=== PATIENT | male | born 1945 | race Caucasian/White ===

== ENCOUNTER 2017-04-30 09:58 | Emergency (ER) | payer BC, OTHER ==
[2017-04-30 10:08] VITALS: BP 124/68; BMI 27.1
--- NOTE | 2017-04-30 10:16 | DR.GENAD ---
HPI - PCP Primary Care Physician: SUSANNE - HPI Comment HPI Comment: HISTORY BELOW. - Complaint/Symptoms Chief Complaint Doctors Comments: FEVER, GENERALIZE WEAKNESS AND CONGESTION AND HEADACHE. S/P KIDNEY TRANSPLANT 03/22/2017. PATIENT IS WEAK AND DRAIN OF ENERGY. SPIKE TEMP LAST NIGHT AND HAD LOW GRADE FEVER THIS AM. Chief Complaint:: PT. C/O GENERALIZED WEAKNESS, CONGESTION, FEVER, CHILLS. PT. HAD A KIDNEY TRANSPLANT ON 03/22/17 IN [place], [place]. PT. WAS SEEN FOR A FOLLOW UP THIS PAST TUESDAY AND FELT FINE. PT. STARTED FEELING BAD ON TUESDAY. FEVER GOT UP TO 101.9 LAST NIGHT. - Nurses notes reviewed Nurses Notes Review: Yes - Source History Provided: Patient, Family Member - Mode of Arrival Mode of Arrival: Ambulatory - Timing Onset of Chief Complaint: 04/28/17 Came on: Gradually - Duration Duration: Constant Duration: Days - Severity Severity: Moderate PMH - PMH Past Medical History: Yes Past Medical History: Anxiety, Arthritis, Hypertension, Renal Disease Past Surgical History: Yes Surgical History: Organ Transplant, Ortho Surgery, Other Past Surgical History Comment: KIDNEY TRANSPLANT - Family History History of Family Medical Conditions: Yes Family Medical History: Diabetes Mellitus, Cancer, [place] - Social History Does patient currently use any type of tobacco product: No Have you used tobacco products in the last 12 months: No Type of Tobacco Use: None Does any household member use tobacco: No Alcohol Use: None Do you use any recreational Drugs:: No Lives With: Spouse Lives Where: Home - infectious screening In the last 2 months have you had wt loss of >10#?: NO Have you had fever, night sweats or hemotysis?: No Have you traveled outside the country in the last 6 months?: No Isolation: Standard ROS - Review of Systems Constitutional: Chills, Fever, Weakness, Fatigue, Loss of Appetite Eyes: negative: Eye Pain, Discharge, Diplopia ENTM: Nose Discharge, Nose Congestion. negative: Ear Pain, Throat Pain Respiratoy: Non-Productive Cough. negative: Productive Cough, Short of Breath, Wheezing, Hemoptysis Cardiovascular: No Symptoms Reported Gastrointestinal/Abdominal: Other (RT LOWER ABSOMINAL WALL ERYTHEMA.) Genitourinary: No Symptoms Reported Neurological: Headache Musculoskeletal: No Symptoms Reported Integumentary: Change in Color, Other (RIGHT LOWER ABDOMINAL WALL REDNESS AND MIOLD TERNDERNESS. NO DRAINAGE.) Hematologic/Lymphatic: No Symptoms Reported Endocrine: No Symptoms Reported All Other Systems: Reviewed and Negative PE - Vital Signs Vitals: Temperature 98.0 F Pulse Rate 74 Respiratory Rate 18 Blood Pressure 124/68 O2 Sat by Pulse Oximetry 96 - General Limitations: No Limitations General Appearance: Alert - Head Head Exam: Normal Inspection - Eyes Eye exam: Normal Appearance - ENT ENT Exam: Normal External Ear Exam External Ear Exam: Normal External Inspection TM/Canal Exam: Bilateral Normal Nose Exam: Normal Nose Exam Mouth Exam: Normal Inspection Throat Exam: Normal Inspection - Neck Neck Exam: Trachea Midline - Chest Chest Inspection: Symmetric Chest Wall Rise - Respiratory Respiratory Exam: Normal Lung Sounds Bilat Respiratory Exam: Bilateral Clear to Auscultation - Cardiovascular Cardiovascular Exam: Regular Rate, Normal Rhythm, Normal Heart Sounds - Abdominal Exam Abdominal Exam: Normal Bowel Sounds, Soft. negative: Tenderness - Extremities Extremities Exam: Normal Inspection - Back Back Exam: Normal Inspection - Neurologic Neurological Exam: Alert, Oriented X3, CN II-XII Intact, Normal Gait, Reflexes Normal. negative: Motor Sensory Deficit - Psychiatric Psychiatric Exam: Normal Affect, Normal Mood - Skin Skin Exam: Erythema MDM - Additional Information Additional Information Obtained From: Family - Differential Diagnosis Differential Diagnosis: FEVER, UTI, SINUSITIS, HEADACHE, WEAKNESS/GENERALIZE Course - Treatment Treatment: SEE ORDERS. - Consultation Consultation Comments: DISCUSS PATIENT WITH JIAN READ[facility] [place] SHE WILL TRANSFER PATIENT TO THEIR HOSPITAL FOR FURTHER MANAGEMENT. URINE CHECK TUESDAY WHEN PATIENT WAS THERE FOR FOLLOW UP IS POSITIVE FOR GROWTH. WANT 1GM VANCOMYCIN AND ZOSYN GIVEN. - Education/Counseling Education/Counseling: Patient, Family Educated On: Treatment, Diagnosis ROR - Labs Reviewed Laboratory Results Reviewed?: Yes Result Diagrams: 04/30/17 10:30 04/30/17 10:30 Laboratory: WBC 6.8 X10^3/uL (3.6-10.0) 04/30/17 10:30 RBC 3.90 X10^6/uL (4.7-6.0) L 04/30/17 10:30 Hgb 11.4 g/dL (13.5-18.0) L 04/30/17 10:30 Hct 34.7 % (42.0-54.0) L 04/30/17 10:30 MCV 89.1 fL (80.0-100.0) 04/30/17 10:30 MCH 29.3 pg (27.0-34.0) 04/30/17 10:30 MCHC 32.9 g/dL (33.0-35.0) L 04/30/17 10:30 RDW 15.5 % (11.6-16.5) 04/30/17 10:30 Plt Count 117 X10^3/uL (150.0-450.0) L 04/30/17 10:30 MPV 9.7 fL (7.4-11.0) 04/30/17 10:30 Neut % 85.8 % (42.0-75.0) H 04/30/17 10:30 Lymph % 2.8 % (21.0-51.0) L 04/30/17 10:30 [place] % 10.9 % (0.0-13.0) 04/30/17 10:30 Eos % 0.1 % (0.9-2.9) L 04/30/17 10:30 Baso % 0.4 % (0.2-1.0) 04/30/17 10:30 Neut # 5.8 x10^3/uL (2.2-4.8) H 04/30/17 10:30 Lymph # 0.2 X10^3/uL (1.3-2.9) L 04/30/17 10:30 [place] # 0.7 x10^3/uL (0.3-0.8) 04/30/17 10:30 Eos # 0.0 x10^3/uL (0.0-0.2) 04/30/17 10:30 Baso # 0.0 X10^3/uL (0.0-0.1) 04/30/17 10:30 Absolute Nucleated RBC 0.0 /100WBC 04/30/17 10:30 Sodium 132 mmol/L (136-145) L 04/30/17 10:30 Corrected Sodium 133 mmol/L (136-145) L 04/30/17 10:30 Potassium 4.8 mmol/L (3.5-5.1) 04/30/17 10:30 Chloride 100 mmol/L (98-107) 04/30/17 10:30 Carbon Dioxide 24.9 mmol/L (21-32) 04/30/17 10:30 BUN 25 mg/dL (7-18) H 04/30/17 10:30 Creatinine 2.31 mg/dL (0.70-1.30) H 04/30/17 10:30 Est GFR (MDRD) Af Amer 36 (>60) L 04/30/17 10:30 Est GFR (MDRD) Non-Af 30 (>60) L 04/30/17 10:30 Glucose 129 mg/dL (65-99) H 04/30/17 10:30 Calcium 9.0 mg/dL (8.5-10.1) 04/30/17 10:30 Corrected Calcium 9.8 mg/dL (8.5-10.1) 04/30/17 10:30 Total Bilirubin 0.70 mg/dL (0.2-1.0) 04/30/17 10:30 AST 15 Units/L (15-37) 04/30/17 10:30 ALT 15 Units/L (12-78) 04/30/17 10:30 Alkaline Phosphatase 68 Units/L (46-116) 04/30/17 10:30 Creatine Kinase 47 Units/L (39-308) 04/30/17 10:30 CK-MB (CK-2) < 1.0 ng/mL (0-4.0) 04/30/17 10:30 CK/CKMB % Calc 2.1 % (<4) 04/30/17 10:30 Troponin I < 0.02 ng/mL (0-1.5) 04/30/17 10:30 Total Protein 6.3 g/dL (6.4-8.2) L 04/30/17 10:30 Albumin 3.0 g/dL (3.4-5.0) L 04/30/17 10:30 Globulin 3.3 g/dL (2.5-4.5) 04/30/17 10:30 Albumin/Globulin Ratio 0.9 Ratio (1.1-2.1) L 04/30/17 10:30 Specimen Type Clean catch urine 04/30/17 11:58 Urine Color Yellow (YELLOW) 04/30/17 11:58 Urine Appearance Clear (CLEAR) 04/30/17 11:58 Urine pH 6.0 (5.0 - 8.0) 04/30/17 11:58 Ur Specific [place] 1.015 (1.000-1.030) 04/30/17 11:58 Urine Protein 2+ (NEGATIVE) 04/30/17 11:58 Urine Glucose (UA) Negative (NEGATIVE) 04/30/17 11:58 Urine Ketones Negative (NEGATIVE) 04/30/17 11:58 Urine Occult Blood 2+ (NEGATIVE) 04/30/17 11:58 Urine Nitrite Negative (NEGATIVE) 04/30/17 11:58 Urine Bilirubin Negative (NEGATIVE) 04/30/17 11:58 Urine Urobilinogen Normal (NORMAL) 04/30/17 11:58 Ur Leukocyte Esterase Negative (NEGATIVE) 04/30/17 11:58 Urine RBC Rare /HPF (NEGATIVE) 04/30/17 11:58 Urine WBC None seen /HPF (NEGATIVE) 04/30/17 11:58 Ur Squamous Epith Cells Rare /HPF (NEGATIVE) 04/30/17 11:58 Urine Bacteria Negative /HPF (NEGATIVE) 04/30/17 11:58 Ur Culture Indicated? No/not indicated 04/30/17 11:58 - XRAY XRAY Interpreted by: Radiologist XRAY Findings: REPORT DISCUSS WITH PATIENT AND . - EKG Rhythm: NSR (EKG NOTED) - Diagnosis Discharge Problem: Sepsis secondary to UTI, Congestion of upper airway, Congestion of nasal sinus Fever Qualifiers: Fever type: due to other condition Qualified Code(s): R50.81 - Fever presenting with conditions classified elsewhere - Discharge Plan Disposition: [facility] Condition: Stable - Follow ups/Referrals Follow ups/Referrals: SHALINI SKINNER [Primary Care Provider] - 3 days - Instructions
[2017-04-30 10:44] LABS: BASOPHILS % (AUTO) 0.4 % (0.2-1.0); EOSINOPHILS % (AUTO) 0.1 % (0.9-2.9); HEMATOCRIT 34.7 % (42.0-54.0); HEMOGLOBIN 11.4 g/dL (13.5-18.0); LYMPHOCYTES # (AUTO) 0.2 X10^3/uL (1.3-2.9); LYMPHOCYTES % (AUTO) 2.8 % (21.0-51.0); MEAN CORPUSCULAR HEMOGLOBIN 29.3 pg (27.0-34.0); MEAN CORPUSCULAR HGB CONC 32.9 g/dL (33.0-35.0); MEAN CORPUSCULAR VOLUME 89.1 fL (80.0-100.0); MEAN PLATELET VOLUME 9.7 fL (7.4-11.0); MONOCYTES # (AUTO) 0.7 x10^3/uL (0.3-0.8); MONOCYTES % (AUTO) 10.9 % (0.0-13.0); NEUTROPHILS # (AUTO) 5.8 x10^3/uL (2.2-4.8); NEUTROPHILS % (AUTO) 85.8 % (42.0-75.0); PLATELET COUNT 117 X10^3/uL (150.0-450.0); RED CELL DISTRIBUTION WIDTH 15.5 % (11.6-16.5); WHITE BLOOD COUNT 6.8 X10^3/uL (3.6-10.0)
[2017-04-30 10:56] LABS: BLOOD UREA NITROGEN 25 mg/dL (7-18); CARBON DIOXIDE 24.9 mmol/L (21-32); CHLORIDE 100 mmol/L (98-107); COR NA(FOR HYPERGLY) 133 mmol/L (136-145); CREATININE 2.31 mg/dL (0.70-1.30); GLUCOSE 129 mg/dL (65-99); SODIUM 132 mmol/L (136-145); TROPONIN I < 0.02 ng/mL (0-1.5); eGFR BLACK RACES 36 (>60); eGFR NON BLACK RACES 30 (>60)
[2017-04-30 11:00] LABS: ALANINE AMINOTRANSFERASE 15 Units/L (12-78); ALKALINE PHOSPHATASE 68 Units/L (46-116); ASPARTATE AMINO TRANSFERASE 15 Units/L (15-37); CKMB % 2.1 % (<4); COR CA(FOR HYPOALB) 9.8 mg/dL (8.5-10.1); CREATINE KINASE 47 Units/L (39-308); CREATINE KINASE MB < 1.0 ng/mL (0-4.0); TOTAL PROTEIN 6.3 g/dL (6.4-8.2)
[2017-04-30] MEDS ORDERED: ZOSYN VIAL 3.375 GM 3.375 GM in NS 100 ML IV + SPIKE MINIBAG* 100 ML IV ONE (12:30)
[2017-04-30] MEDS ORDERED: NS 1000 ML 1,000 ML ONE (12:32)
[2017-04-30] MEDS ORDERED: VANCOMYCIN 1 GM PREMIX (ADDVANTAGE) 250 ML IV ONE (12:32)
[2017-04-30] MEDS ORDERED: ZOSYN VIAL 3.375 GM IV ONE (12:33)
[2017-04-30] MEDS ORDERED: NS 100 ML IV + SPIKE MINIBAG* 100 ML IV ONE (12:33)
[2017-04-30 12:37] LABS: BILIRUBIN,URINE NEGATIVE (NEGATIVE); BLOOD/HEMOGLOBIN,URINE 2+ (NEGATIVE); GLUCOSE, URINE NEGATIVE (NEGATIVE); KETONES,URINE NEGATIVE (NEGATIVE); LEUKOCYTE ESTERASE ,URINE NEGATIVE (NEGATIVE); NITRITES,URINE NEGATIVE (NEGATIVE); PROTEIN,URINE 2+ (NEGATIVE); UROBILINOGEN,URINE NORMAL (NORMAL)
[2017-04-30 12:40] LABS: APPEARANCE,URINE CLEAR (CLEAR); BACTERIA,URINE NEGATIVE /HPF (NEGATIVE); COLOR,URINE YELLOW (YELLOW); RBC,URINE RARE /HPF (NEGATIVE); SQUAMOUS EPITHELIAL CELL,UR RARE /HPF (NEGATIVE)
--- NOTE | 2017-04-30 12:48 | RAD ---
HISTORY: Fever, weakness and congestion Study: Single-view chest Comparison: Feb 20 2015 Findings: The trachea is midline. The cardiac silhouette is unremarkable. Right-sided subclavian stents are noted in place. The lungs are clear without focal infiltrate or effusion. The bony thorax is unrema rkable. IMPRESSION: 1. No acute cardiopulmonary disease. Reported By:
[2017-04-30] MEDS ORDERED: NS 1000 ML 1,000 ML IV SCH (13:00)
[2017-04-30] MEDS ORDERED: VANCOMYCIN 1 GM PREMIX (ADDVANTAGE) 250 ML IV NR (13:00)
== END 2017-04-30 15:13 | disposition short-term general hospital (02) ==
LOC: ER 10:08
DX: A41.89 Other specified sepsis (principal); J98.8 Other specified respiratory disorders; R09.81 Nasal congestion; R50.81 Fever presenting with conditions classified elsewhere
CPT/HCPCS: 36415; 71010; 80053; 81001; 82550; 82553; 84484; 85025; 87040; 93005; 93010; 96365; 96374; 96375; 99284; 99285; A4222; J2543; J3370

== ENCOUNTER 2017-05-30 16:47 | Emergency (ER) | payer BC, OTHER ==
[2017-05-30 16:52] VITALS: BMI 27.1
[2017-05-30 17:38] LABS: BILIRUBIN,URINE NEGATIVE (NEGATIVE); BLOOD/HEMOGLOBIN,URINE 3+ (NEGATIVE); GLUCOSE, URINE 2+ (NEGATIVE); KETONES,URINE NEGATIVE (NEGATIVE); LEUKOCYTE ESTERASE ,URINE 2+ (NEGATIVE); NITRITES,URINE POSITIVE (NEGATIVE); PROTEIN,URINE 3+ (NEGATIVE); UROBILINOGEN,URINE NORMAL (NORMAL)
[2017-05-30 17:45] LABS: APPEARANCE,URINE HAZY (CLEAR); COLOR,URINE YELLOW (YELLOW)
[2017-05-30 17:46] LABS: BACTERIA,URINE TRACE /HPF (NEGATIVE); SQUAMOUS EPITHELIAL CELL,UR NEGATIVE /HPF (NEGATIVE)
--- NOTE | 2017-05-30 17:57 | DR.GENAD ---
HPI - PCP Primary Care Physician: charlie - HPI Comment HPI Comment: PATIENT HAD KIDNEY KHKUCYDOP43/13/2017. HE SAID HE HAS ENLARGE PROSTATE PENDING SURGEY. IN ED ADRIANNE NOTED. - Complaint/Symptoms Chief Complaint Doctors Comments: FEVER, CHILLS AT HOME. STARTED YESTERDAY. WORSE TODAY. HAVE INDWELLING WEIR CATH. Chief Complaint:: patient recieved a kidney transplant in march this year. he stated he started feeling bad with a fever and chill yesterday. - Nurses notes reviewed Nurses Notes Review: Yes - Source History Provided: Patient - Mode of Arrival Mode of Arrival: Ambulatory - Timing Onset of Chief Complaint: 05/29/17 Came on: Gradually - Duration Duration: Constant Duration: Days PMH - PMH Past Medical History: Yes Past Medical History: Anxiety, Arthritis, Hypertension, Renal Disease Past Surgical History: Yes Surgical History: Organ Transplant, Ortho Surgery, Other - Family History History of Family Medical Conditions: No Family Medical History: Diabetes Mellitus, Cancer, [place] - Social History Does patient currently use any type of tobacco product: No Have you used tobacco products in the last 12 months: No Type of Tobacco Use: None Does any household member use tobacco: No Alcohol Use: None Do you use any recreational Drugs:: No Lives With: Family Lives Where: Home - infectious screening In the last 2 months have you had wt loss of >10#?: NO Have you had fever, night sweats or hemotysis?: No Have you traveled outside the country in the last 6 months?: No Isolation: Standard ROS - Review of Systems Constitutional: No Symptoms Reported, Chills, Fever, Weakness, Fatigue, Loss of Appetite. negative: Diaphoresis Eyes: No Symptoms Reported. negative: Eye Pain, Discharge ENTM: No Symptoms Reported. negative: Ear Pain, Nose Discharge, Nose Congestion , Throat Pain Respiratoy: Non-Productive Cough, Short of Breath. negative: Productive Cough, Wheezing, Hemoptysis Cardiovascular: No Symptoms Reported Gastrointestinal/Abdominal: Nausea. negative: Abdominal Pain, Diarrhea, Vomiting Genitourinary: Other (INDWELLING WEIR CATH.). negative: Dysuria, Frequency, Hematuria Neurological: Weakness, Dizziness. negative: Headache Musculoskeletal: Muscle Pain Integumentary: No Symptoms Reported Hematologic/Lymphatic: No Symptoms Reported Endocrine: No Symptoms Reported All Other Systems: Reviewed and Negative PE - Vital Signs Vitals: Temperature 97.8 F Pulse Rate [Right Brachial] 78 Pulse Rate 67 Respiratory Rate 18 Blood Pressure [Right Arm] 126/84 Blood Pressure 137/74 O2 Sat by Pulse Oximetry 99 - General Limitations: No Limitations General Appearance: Alert - Head Head Exam: Normal Inspection - Eyes Eye exam: Normal Appearance - ENT ENT Exam: Normal External Ear Exam External Ear Exam: Normal External Inspection TM/Canal Exam: Bilateral Normal Nose Exam: Normal Nose Exam Mouth Exam: Normal Inspection Throat Exam: Normal Inspection - Neck Neck Exam: Trachea Midline - Chest Chest Inspection: Symmetric Chest Wall Rise - Respiratory Respiratory Exam: Normal Lung Sounds Bilat Respiratory Exam: Bilateral Clear to Auscultation - Cardiovascular Cardiovascular Exam: Regular Rate, Normal Rhythm, Normal Heart Sounds - Abdominal Exam Abdominal Exam: Normal Bowel Sounds, Soft. negative: Tenderness - Extremities Extremities Exam: Normal Inspection - Back Back Exam: Normal Inspection - Neurologic Neurological Exam: Alert, Oriented X3 - Psychiatric Psychiatric Exam: Anxious - Skin Skin Exam: Normal Color MDM - Additional Information Additional Information Obtained From: Family - Differential Diagnosis Differential Diagnosis: UROSEPSIS, GENERALIZE WEAKNESS. POST KIDNEY TRANSPLANT. Course - Treatment Treatment: SEE ORDERS. PATIENT DID NOT WISH TO GO TO [facility] BY AMBULANCE. HE WILL TRANSPORT HIMSELF IN AM TO THE TRANSPLANT CLINIC. DR. JENKINS MADE AWARE OF PATIENTS DICISION. ROCEPHIN 1GM IN ED. BUN AND CR SLIGHTLYELEVATED. - Consultation Consultation Comments: DISCUSS PATIENT WITH DR. JENKINS AT [facility], TRANSPLANT SURGEON ACCEPTED PATIENT FOR TRANSFER. - Education/Counseling Education/Counseling: Patient, Family, Education Educated On: Treatment, Diagnosis, Needs for Follow Up ROR - Labs Reviewed Laboratory Results Reviewed?: Yes Result Diagrams: 05/30/17 18:05 05/30/17 18:05 Laboratory: 05/30/17 17:30 Urine,Clean Catch Urine Culture - Preliminary WBC 7.1 X10^3/uL (3.6-10.0) 05/30/17 18:05 RBC 4.08 X10^6/uL (4.7-6.0) L 05/30/17 18:05 Hgb 11.8 g/dL (13.5-18.0) L 05/30/17 18:05 Hct 35.8 % (42.0-54.0) L 05/30/17 18:05 MCV 87.8 fL (80.0-100.0) 05/30/17 18:05 MCH 29.0 pg (27.0-34.0) 05/30/17 18:05 MCHC 33.0 g/dL (33.0-35.0) 05/30/17 18:05 RDW 15.5 % (11.6-16.5) 05/30/17 18:05 Plt Count 97 X10^3/uL (150.0-450.0) L 05/30/17 18:05 MPV 10.0 fL (7.4-11.0) 05/30/17 18:05 Neut % 84.2 % (42.0-75.0) H 05/30/17 18:05 Lymph % 4.9 % (21.0-51.0) L 05/30/17 18:05 [place] % 10.7 % (0.0-13.0) 05/30/17 18:05 Eos % 0.0 % (0.9-2.9) L 05/30/17 18:05 Baso % 0.2 % (0.2-1.0) 05/30/17 18:05 Neut # 5.9 x10^3/uL (2.2-4.8) H 05/30/17 18:05 Lymph # 0.3 X10^3/uL (1.3-2.9) L 05/30/17 18:05 [place] # 0.8 x10^3/uL (0.3-0.8) 05/30/17 18:05 Eos # 0.0 x10^3/uL (0.0-0.2) 05/30/17 18:05 Baso # 0.0 X10^3/uL (0.0-0.1) 05/30/17 18:05 Absolute Nucleated RBC 0.0 /100WBC 05/30/17 18:05 Sodium 135 mmol/L (136-145) L 05/30/17 18:05 Corrected Sodium 136 mmol/L (136-145) 05/30/17 18:05 Potassium 4.3 mmol/L (3.5-5.1) 05/30/17 18:05 Chloride 105 mmol/L (98-107) 05/30/17 18:05 Carbon Dioxide 20.9 mmol/L (21-32) L 05/30/17 18:05 BUN 26 mg/dL (7-18) H 05/30/17 18:05 Creatinine 2.28 mg/dL (0.70-1.30) H 05/30/17 18:05 Est GFR (MDRD) Af Amer 36 (>60) L 05/30/17 18:05 Est GFR (MDRD) Non-Af 30 (>60) L 05/30/17 18:05 Glucose 155 mg/dL (65-99) H 05/30/17 18:05 Calcium 8.9 mg/dL (8.5-10.1) 05/30/17 18:05 Corrected Calcium 9.7 mg/dL (8.5-10.1) 05/30/17 18:05 Total Bilirubin 0.60 mg/dL (0.2-1.0) 05/30/17 18:05 AST 11 Units/L (15-37) L 05/30/17 18:05 ALT 18 Units/L (12-78) 05/30/17 18:05 Alkaline Phosphatase 52 Units/L (46-116) 05/30/17 18:05 Total Protein 6.6 g/dL (6.4-8.2) 05/30/17 18:05 Albumin 3.0 g/dL (3.4-5.0) L 05/30/17 18:05 Globulin 3.6 g/dL (2.5-4.5) 05/30/17 18:05 Albumin/Globulin Ratio 0.8 Ratio (1.1-2.1) L 05/30/17 18:05 Specimen Type Clean catch urine 05/30/17 17:30 Urine Color Yellow (YELLOW) 05/30/17 17:30 Urine Appearance Hazy (CLEAR) 05/30/17 17:30 Urine pH 5.0 (5.0 - 8.0) 05/30/17 17:30 Ur Specific [place] 1.020 (1.000-1.030) 05/30/17 17:30 Urine Protein 3+ (NEGATIVE) 05/30/17 17:30 Urine Glucose (UA) 2+ (NEGATIVE) 05/30/17 17:30 Urine Ketones Negative (NEGATIVE) 05/30/17 17:30 Urine Occult Blood 3+ (NEGATIVE) 05/30/17 17:30 Urine Nitrite Positive (NEGATIVE) 05/30/17 17:30 Urine Bilirubin Negative (NEGATIVE) 05/30/17 17:30 Urine Urobilinogen Normal (NORMAL) 05/30/17 17:30 Ur Leukocyte Esterase 2+ (NEGATIVE) 05/30/17 17:30 Urine RBC 3-5 /HPF (NEGATIVE) 05/30/17 17:30 Urine WBC 6-10 /HPF (NEGATIVE) 05/30/17 17:30 Ur Squamous Epith Cells Negative /HPF (NEGATIVE) 05/30/17 17:30 Urine Bacteria Trace /HPF (NEGATIVE) 05/30/17 17:30 Ur Culture Indicated? Yes/culture set up 05/30/17 17:30 - XRAY XRAY Interpreted by: Radiologist XRAY Findings: REPORT DISCUSS WITH PATIENT. - Diagnosis Discharge Problem: UTI (urinary tract infection), Status post kidney transplant - Discharge Plan Disposition: 07 AGAINST MEDICAL ADVICE Condition: Stable - Follow ups/Referrals Follow ups/Referrals: BERTA NEW [Primary Care Provider] - 3 days - Instructions
[2017-05-30 18:15] LABS: BASOPHILS % (AUTO) 0.2 % (0.2-1.0); HEMATOCRIT 35.8 % (42.0-54.0); HEMOGLOBIN 11.8 g/dL (13.5-18.0); LYMPHOCYTES # (AUTO) 0.3 X10^3/uL (1.3-2.9); LYMPHOCYTES % (AUTO) 4.9 % (21.0-51.0); MEAN CORPUSCULAR VOLUME 87.8 fL (80.0-100.0); MONOCYTES # (AUTO) 0.8 x10^3/uL (0.3-0.8); MONOCYTES % (AUTO) 10.7 % (0.0-13.0); NEUTROPHILS # (AUTO) 5.9 x10^3/uL (2.2-4.8); NEUTROPHILS % (AUTO) 84.2 % (42.0-75.0); PLATELET COUNT 97 X10^3/uL (150.0-450.0); RED BLOOD COUNT 4.08 X10^6/uL (4.7-6.0); RED CELL DISTRIBUTION WIDTH 15.5 % (11.6-16.5); WHITE BLOOD COUNT 7.1 X10^3/uL (3.6-10.0)
[2017-05-30 18:28] LABS: CALCIUM 8.9 mg/dL (8.5-10.1); CARBON DIOXIDE 20.9 mmol/L (21-32); COR CA(FOR HYPOALB) 9.7 mg/dL (8.5-10.1); CREATININE 2.28 mg/dL (0.70-1.30); TOTAL PROTEIN 6.6 g/dL (6.4-8.2)
--- NOTE | 2017-05-30 19:11 | RAD ---
Chest, two views Indication: Chills Comparison: April 30, 2017 Findings: The cardiac silhouette is normal in size. Right-sided subclavian stents are again noted. N o focal consolidation, effusion or pneumothorax is identified. The osseous thorax is unremarkable. Impression: No acute cardiopulmonary abnormality. Reported By:
[2017-05-30] MEDS ORDERED: ROCEPHIN VIAL 1 GM 1 GM in NS 50 ML IV + SPIKE MINIBAG* 50 ML IV ONE (19:15)
[2017-05-30] MEDS ORDERED: ROCEPHIN 1 GM IV PREMIX * OUT OF STOCK 50 ML IV ONE (19:21)
[2017-05-30] MEDS ORDERED: NS 1000 ML 1,000 ML ONE (19:21)
[2017-05-30] MEDS ORDERED: NS 1000 ML 1,000 ML IV SCH (20:00)
[2017-05-31 00:56] VITALS: BP 126/84
== END 2017-05-31 00:16 | disposition left against medical advice (07) ==
LOC: ER 17:10
DX: N39.0 Urinary tract infection, site not specified (principal); Z94.0 Kidney transplant status; A04.8 Other specified bacterial intestinal infections
CPT/HCPCS: 36415; 71010; 80053; 81001; 85025; 87040; 87086; 87088; 87186; 96365; 96367; 96374; 99283; A4222; J0696